=== PATIENT | male | born 1975 | race Caucasian/White ===

== ENCOUNTER 2017-07-08 18:26 | Emergency (ER) | payer BC, OTHER ==
[~2017-07-08] VITALS: Ht 190.5 cm; Wt 120.4 kg
[~2017-07-08 18:26] MED LIST: ERYTHROMYC1 APPLICAT RIGHT EYE; NOHOMEMEDS
[2017-07-08 19:32] LABS: HEMATOCRIT 49.2 % (38.0-50.0); HEMOGLOBIN 17.3 G/DL (12.5-16.6); MCH 29.7 PG (29.0-34.0); MCHC 35.2 G/DL (30.0-36.0); MCV 84.4 FL (86-99); PLATELET COUNT 154 K/uL (156-360); RBC DIS.WIDTH-SD 36.3 % (39-53); RED BLOOD COUNT 5.83 M/uL (4.00-5.50); WHITE BLOOD COUNT 6.9 K/uL (4.1-10.2)
[2017-07-08 19:36] LABS: CHLORIDE 106 mEq/L (99-109); POTASSIUM 4.7 mEq/L (3.7-5.4); SODIUM 137 mEq/L (136-147)
[2017-07-08 19:38] LABS: GLUCOSE 104 mg/dL (70-99)
[2017-07-08 19:42] LABS: GFR ESTIMATE (CALCULATED) > 59 mL/min/ (58.99-99999)
[2017-07-08 19:43] LABS: UREA NITROGEN (BUN) 15 mg/dL (9-23)
[2017-07-08 20:23] LABS: TROP-I INTERPRETATION NEGATIVE; TROPONIN-I < 0.01 ng/mL (0.0-0.30)
[2017-07-08 21:44] VITALS: BP 120/101
== END 2017-07-08 21:45 | disposition home or self-care (01) ==
LOC: EME 18:26
PROVIDERS: Physician Assistant Medical
DX: R00.2 Palpitations (principal); J45.909 Unspecified asthma, uncomplicated; F90.9 Attention-deficit hyperactivity disorder, unspecified type; Z88.0 Allergy status to penicillin
CPT/HCPCS: 80048; 84484; 85027; 93005; 99281; 99283

== ENCOUNTER 2017-11-09 18:17 | Emergency (ER) | payer BC, OTHER ==
[~2017-11-09] VITALS: Ht 190.5 cm; Wt 128.4 kg
[2017-11-09 18:43] LABS: HEMATOCRIT 44.7 % (38.0-50.0); HEMOGLOBIN 15.9 G/DL (12.5-16.6); MCH 30.1 PG (29.0-34.0); MCHC 35.6 G/DL (30.0-36.0); MCV 84.7 FL (86-99); PLATELET COUNT 165 K/uL (156-360); RBC DIS.WIDTH-CV 12.3 % (11.8-14.6); RBC DIS.WIDTH-SD 37.7 % (39-53); RED BLOOD COUNT 5.28 M/uL (4.00-5.50); WHITE BLOOD COUNT 7.5 K/uL (4.1-10.2)
[2017-11-09 18:56] LABS: CHLORIDE 107 mEq/L (99-109); SODIUM 142 mEq/L (136-147)
[2017-11-09 18:58] LABS: GLUCOSE 101 mg/dL (70-99)
[2017-11-09 19:02] LABS: CREATININE 1.1 mg/dL (0.6-1.3); GFR ESTIMATE (CALCULATED) > 59 mL/min/ (58.99-99999)
[2017-11-09 19:03] LABS: UREA NITROGEN (BUN) 10 mg/dL (9-23)
[2017-11-09 19:10] LABS: TROP-I INTERPRETATION NEGATIVE; TROPONIN-I < 0.01 ng/mL (0.0-0.30)
[2017-11-09 19:45] VITALS: BP 128/85
== END 2017-11-09 19:45 | disposition home or self-care (01) ==
LOC: EME 18:17
DX: R00.2 Palpitations (principal); J45.909 Unspecified asthma, uncomplicated; F90.9 Attention-deficit hyperactivity disorder, unspecified type; Z87.891 Personal history of nicotine dependence; Z88.0 Allergy status to penicillin
CPT/HCPCS: 71046; 80048; 84484; 85027; 93005; 99281; 99285